=== PATIENT | female | born 1950 | race Caucasian/White ===

== ENCOUNTER 2020-06-25 12:28 | Outpatient (CLI) | payer MEDICARE, SELFPAY ==
--- NOTE | ~2020-06-25 | XR_ITS ---
EXAMINATION: XR_[id number]_CR DATE: 06/25/2020 12:59 INDICATION: Cervical spondylosis without myelopathy or radiculopathy. TECHNIQUE: 3 views of cervical spine on 4 radiographs were obtained. COMPARISON: Cervical spine radiographs 03/15/2019 FINDINGS: There is hypolordosis of cervical spine. Vertebral body heights are normal. There is mildly decreased disc height at C4-C5 and C6-C7. There is multilevel mild facet joint osteoarthritis. There is multilevel uncovertebral joint osteoarthritis, moderate on the left at C4-C5 and on the right at C5-C6. There is mild central canal stenosis at C5-C6. No prevertebral soft tissue swelling. IMPRESSION: 1. Stable mild cervical spondylosis. Reviewed, dictated and finalized at location A.
--- NOTE | ~2020-06-25 | XR_ITS ---
EXAMINATION: XR lumbar spine min 4V DATE: 06/25/2020 12:59 INDICATION: Low back pain. TECHNIQUE: 5 views of lumbar spine were obtained. COMPARISON: CT abdomen and pelvis 06/12/2018 FINDINGS: There is 9 degrees dextrocurvature of lumbar spine. There are Schmorl's nodes at L2-L3 and L3-L4. There are benign bone islands in L1 and L3 vertebral bodies. Intervertebral disc heights are n ormal. There is severe facet joint osteoarthritis in lower lumbar spine. Cholelithiasis is noted. IMPRESSION: 1. Mild lumbar spondylosis. 2. Cholelithiasis. Reviewed, dictated and finalized at location A.
== END 2020-06-25 12:29 | disposition home or self-care (01) ==
PROVIDERS: PCP Family Medicine; Visit Provider Physician Assistant
DX: M47.812 Spondylosis without myelopathy or radiculopathy, cervical region (principal); G89.29 Other chronic pain; M47.896 Other spondylosis, lumbar region; K80.20 Calculus of gallbladder without cholecystitis without obstruction
CPT/HCPCS: 72040; 72110

== ENCOUNTER → 2020-09-14 17:32 | Outpatient (CLI) | payer MEDICARE, SELFPAY ==
--- NOTE | ~2020-09-14 | MM_ITS ---
EXAMINATION: MM screening luis daniel BI w abdullahi HISTORY: Screening TECHNIQUE: Craniocaudal and mediolateral oblique 3-D tomosynthesis images were obtained and synthetic 2-D images were generated. CAD analysis was submitted and interpreted. COMPARISON: Comparison to multiple prior studies sequentially, with oldest reviewed study dated 07/2012. BREAST PARENCHYMAL COMPOSITION: The breasts are heterogeneously dense, which may obscure small masses . FINDINGS: There is no evidence of suspicious mass, calcification, or architectural distortion to sugg est malignancy in either breast. There has been no suspicious interval change. IMPRESSION: 1. No mammographic evidence of malignancy. 2. Recommend routine screening mammography in one year. BI-RADS Category 1: Negative Reviewed, dictated and finalized at location A. [employer]
== END ==
PROVIDERS: PCP Family Medicine; Visit Provider Obstetrics & Gynecology
DX: Z12.31 Encounter for screening mammogram for malignant neoplasm of breast (principal)
CPT/HCPCS: 77063; 77067

== ENCOUNTER 2020-09-22 10:07 | Emergency (ER) | payer MEDICARE, SELFPAY ==
[2020-09-22 10:18] VITALS: BP 127/68; PULSE 80; RESP 16; TEMP 36.4; O2SAT 99
--- NOTE | 2020-09-22 11:07 | PC.NURSE ---
aware of xpc status and is next to be seen.
--- NOTE | 2020-09-22 11:28 | ED.UPPEXIN ---
HPI - Extremity Injury (Upper) General Chief Complaint: Extremity Injury, Upper Stated Complaint: RIGHT HAND PAIN History of Present Illness HPI narrative: THIS IS A 70 YEAR OLD FEMALE THAT COMES IN COMPLAINING OF RIGHT ARM NUMBNESS AND TINGLING.PATIENT INFORMED ME SHE HAD A INJECTION TO HER NECK 2 DAYS AGO AND EVERY SINCE THEN SHE HAS HAD PROBLEM WITH HER RIGHT ARM. PATIENT STATES SHE CAN NOT CALL THE OFFICE BACK BECAUSE THEY ARE CLOSED TODAY. PATIENT STATES THAT SHE IS SHAKEY AND WHEN SHE TRIED TO FEED HERSELF SHE HAS NO CONTROL.PATIENT IS VERY TEARFUL AND SHE STATES SHE HAS A MRI TO BE COMPLETED ON FRIDAY. PATIENT STATES THAT HER ARM IS TINGLING AND HEAVY SHE IS NOT FEELING RIGHT. PATIENT IS ANXIOUS AND TEARFUL PATIENT MADE THE STATEMENT SHE COULD BE LONG SHE HAS WAITED. I DID EXPLAIN TO PATIENT THAT SHE HAS BEEN SEEN IN THE ORDER THAT SHE CAME AND I APOLOGIZED FOR HER WAIT. Related Data Home Medications Medication Instructions Recorded Confirmed alendronate 70 mg tablet 70 mg PO WEEKLY 06/14/20 06/14/20 simvastatin 10 mg tablet 10 mg PO DAILY 06/14/20 06/14/20 alprazolam 09/22/20 Allergies Allergy/AdvReac Type Severity Reaction Status Date / Time No Known Allergies Allergy Verified 09/06/20 13:42 Review of Systems Review of Systems: Narrative: CONSTITUTIONAL: Denies fever, chills, or sweats. EYES: Denies visual changes, redness, or discharge. ENT: Denies rhinorrhea, congestion, sore throat, or otalgia. CARDIOVASCULAR:Denies chest pain, palpitations, or edema. RESPIRATORY: Denies cough or dyspnea. GASTROINTESTINAL: Denies abdominal pain, nausea, vomiting, or diarrhea. GENITOURINARY: Denies dysuria or hematuria. SKIN:[Denies rash or itching. MUSCULOSKELETAL:Denies back pain, positive joint pain, or myalgia. Right arm numbness and tingling, HEAVINESS NEUROLOGIC: Denies headache, numbness, or weakness. PSYCHIATRIC:Denies anxiety or depression [facility] Past Medical History Medical History (Updated 09/22/20 @ 11:42 by Ana Dominguez NP) Anxiety BMI 21.0-21.9, adult Breast cancer screening (~03/2019) Chronic neck pain Chronic neck pain with osteoarthritis determined by x-ray Constipation COPD with asthma Environmental allergies Essential (primary) hypertension History of colon polyps Hyperlipidemia Low back pain Multiple thyroid nodules Osteoporosis URI (upper respiratory infection) (~01/2019) Vitamin D deficiency Surgical History Surgical History History of total abdominal hysterectomy and bilateral salpingo-oophorectomy History of tubal ligation (~1978) Family History Family History Sibling Family history of cardiovascular disease Acute myocardial infarction Family history of chronic obstructive pulmonary disease Family history of malignant neoplasm of breast in first degree relative Father Family history of lung cancer Mother Family history of malignant neoplasm of breast in first degree relative Social History Social History (Updated 09/06/20 @ 13:43 by Asuncion Boss) Smoking packs per day: 1 Smoking cigarettes per day: 20.0 Years smoked: 20 Smoking pack-years: 20.00 Smoking status: Former smoker Tobacco type: cigarettes Second hand tobacco smoke exposure: No Smoking end date: 11/10/16 Alcohol intake: current Substance use: never Substance use type: does not use Gender identity (if verbalized by the patient): Female Comments At time as signature, I have reviewed and agree with nursing past medical, social, surgical and family history. Please see nursing chart for further information. There is no relevant family history pertinent to the presenting complaint. Exam Narrative: Exam Narrative: GENERAL:Well-appearing, well-nourished, and in no acute distress. HEAD:Normocephalic, atraumatic. EYES: PERRLA and EOMI. ENT: Nares clear, no
== END 2020-09-22 11:33 | disposition short-term general hospital (02) ==
PROVIDERS: Emergency Provider Nurse Practitioner Family; PCP Family Medicine
DX: R20.0 Anesthesia of skin (principal); R20.2 Paresthesia of skin; M47.812 Spondylosis without myelopathy or radiculopathy, cervical region; J44.9 Chronic obstructive pulmonary disease, unspecified; I10 Essential (primary) hypertension; E78.5 Hyperlipidemia, unspecified; M81.0 Age-related osteoporosis without current pathological fracture; F41.9 Anxiety disorder, unspecified
CPT/HCPCS: 99212; G0463

== ENCOUNTER 2020-09-22 11:56 | Observation (INO) | payer MEDICARE, SELFPAY ==
[2020-09-22] VITALS (17 sets, daily range): BP systolic 124–175; BP diastolic 55–84; PULSE 51–73; RESP 12–18; TEMP 36.6–37; O2SAT 97–100; BMI 21.3
--- NOTE | ~2020-09-22 | CT_ITS ---
EXAMINATION: CTA brain carotid EXAM DATE: 09/22/2020 14:10 INDICATION: Abnormal coordination of right hand. TECHNIQUE: Noncontrast head CT. Spiral CTA of the carotid arteries was performed with intravenous i njection 100 cc of Omnipaque 350. Axial, coronal, sagittal reformatted images reviewed. Additional r eformatted images created on dedicated 3-D workstation. NASCET comparable standard used to assess th e degree of arterial stenosis. Spiral CT angiogram cerebral arteries performed with the same intrave nous injection of contrast. Source images of the brain CTA transferred to dedicated workstation for 3 -D rotational image creation. Coronal, sagittal maximum intensity pixel images also reviewed. The d ose-length product (DLP) for this examination was 1623.30 mGy-cm. The exposure was tailored accordi ng to patient size, and iterative reconstruction (ASIR) was used as additional dose reduction techniq ue. Comparison is made to prior examination from 01/19/2013. FINDINGS: There is moderate amount of right carotid bulb plaque, 30% stenosis. More extensive left ca rotid bulb calcified and noncalcified plaque with 60% stenosis. The vertebral arteries are codominant . Bilateral carotid siphon arterial sclerosis only mild stenosis. There is no carotid or vertebral ba silar arterial dissection or fibromuscular dysplasia. There are no cerebral artery aneurysms. There i s symmetric cerebral artery arborization. The sagittal, transverse and sigmoid sinuses enhance normal ly, no venous sinus thrombosis. Internal cerebral veins also enhance normally. 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 Mild microangiopathy and cerebral atrophy. There is no acute intraparenchymal hemorrhage. No evidence of intraparenchymal brain mass lesion. No evidenc e of acute infarction. There is no mass effect or midline shift. There is no obstructive hydrocepha anushka suspected. There are no extra-axial collections. There are no calvarial acute fractures. Bilate ral cataract surgery. There is small right thyroid lobe nodule. There are no areas of abnormal enhanc ement on the post contrast images. IMPRESSION: 1. Left carotid bulb 60% stenosis. 2. Right carotid bulb 30% stenosis. 3. 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 4. Mild atrophy and microangiopathy. Reviewed, dictated and finalized at location B. [employer]
--- NOTE | 2020-09-22 12:36 | ED.NEUROSD ---
HPI - Neuro Symptoms/Deficit General Chief Complaint: Neuro Symptoms/Deficit Stated Complaint: R hand numbness/tingling - from Urgent Care Time Seen by Provider: 09/22/20 12:05 History of Present Illness HPI Narrative: Right hand/forearm numbness and incoordination for the past 3 days. The numbness is diffuse from the elbow down, intermittent. She noted that she has trouble doing things with the right hand and at times it shakes. She had steroid injections in the neck 1 week ago. She is nt able to provide any additional details about the procedure. No weakness, fever, trauma. Related Data Home Medications Medication Instructions Recorded Confirmed alendronate 70 mg tablet 70 mg PO WEEKLY 06/14/20 06/14/20 simvastatin 10 mg tablet 10 mg PO DAILY 06/14/20 06/14/20 alprazolam 09/22/20 Allergies Allergy/AdvReac Type Severity Reaction Status Date / Time No Known Allergies Allergy Verified 09/22/20 17:15 Review of Systems Review of Systems: All systems reviewed & are unremarkable except as noted in HPI and below Constitutional: Constitutional: Denies fever(s) and Denies weakness Cardiovascular: Cardiovascular: Denies chest pain Respiratory: Respiratory: Denies dyspnea Gastrointestinal: Gastrointestinal: Denies abdominal pain, Denies nausea and Denies vomiting Genitourinary: Genitourinary: Denies dysuria Neurologic: Denies dizziness, Denies headache(s) and Denies weakness PMFSH Past Medical History Medical History Anxiety BMI 21.0-21.9, adult Breast cancer screening (~03/2019) Chronic neck pain Chronic neck pain with osteoarthritis determined by x-ray Constipation COPD with asthma Environmental allergies Essential (primary) hypertension History of colon polyps Hyperlipidemia Low back pain Multiple thyroid nodules Osteoporosis URI (upper respiratory infection) (~01/2019) Vitamin D deficiency Surgical History Surgical History History of total abdominal hysterectomy and bilateral salpingo-oophorectomy History of tubal ligation (~1978) Family History Family History Sibling Family history of cardiovascular disease Acute myocardial infarction Family history of chronic obstructive pulmonary disease Family history of malignant neoplasm of breast in first degree relative Father Family history of lung cancer Mother Family history of malignant neoplasm of breast in first degree relative Social History Social History Smoking packs per day: 1 Smoking cigarettes per day: 20.0 Years smoked: 20 Smoking pack-years: 20.00 Smoking status: Former smoker Tobacco type: cigarettes Second hand tobacco smoke exposure: No Smoking end date: 11/10/16 Alcohol intake: current Substance use: never Substance use type: does not use Gender identity (if verbalized by the patient): Female Exam Const: General: healthy appearing, no acute distress and alert Orientation/consciousness: patient oriented x3 HENMT: Head: normal to inspection Neck: Neck: normal visual inspection Chest: Chest palpation & inspection: no tenderness Resp: Effort & Inspection: normal respiratory effort Auscultation: clear to auscultation bilaterally, no rales, no rhonchi and no wheezes Cardio: Jugular venous distension: no JVD Rate: regular rate Rhythm: regular rhythm Heart sounds: no murmurs GI: Inspection: non-distended GI Palp: Yes Soft to palpation and No Tenderness to palpation present (GI) Skin: General skin exam: normal color Neuro: General: patient oriented x3 Cranial nerves: Yes CN's II-XII intact bilaterally Speech: normal speech Motor exam (neuro): 5/5 motor strength present throughout Other: Abnormal [id number] and rapid alternating movements with RUE Extrem: General:
[2020-09-22 13:13] LABS: Basophils Percent Auto 0.5 % (0.2-1.2); Eosinophils Absolute Auto 0.1 K/mm3 (0-0.3); Eosinophils Percent Auto 0.7 % (0-4.4); Hematocrit 38.2 % (37.0-47.0); Hemoglobin 12.7 g/dL (12.0-15.0); Immature Granulocyte Absolute 0.02 K/mm3 (0.00-0.031); Immature Granulocyte Percent A 0.2 % (0-0.5); Lymphocytes Absolute Auto 2.75 K/mm3 (0.9-3.2); Lymphocytes Percent Auto 31.4 % (18.3-44.2); Mean Corpuscular HGB Conc 33.2 g/dl (32-36); Mean Corpuscular Hemoglobin 32.7 pg (26-34); Mean Corpuscular Volume 98.5 fl (80-100); Mean Platelet Volume 10.4 fl (7.4-10.4); Monocytes Absolute Auto 0.5 K/mm3 (0.1-0.6); Monocytes Percent Auto 5.3 % (2.6-8.5); Neutrophils Absolute Auto 5.4 K/mm3 (1.3-6.7); Neutrophils Percent Auto 61.9 % (45.5-73.1); Platelet Count Result 240 k/mm3 (150-375); Red Blood Count 3.88 M/mm3 (4.2-5.4); Red Cell Distribution Width 12.4 % (11.5-14.5); White Blood Count 8.8 K/mm3 (4.5-10.0)
[2020-09-22 13:24] LABS: Prothrombin Time 13.9 Seconds (11.1-14.7)
[2020-09-22 13:25] LABS: Anion Gap 6 mmol/L (8-16); Blood Urea Nitrogen 20 mg/dL (7-17); Calcium 9.2 mg/dL (8.4-10.2); Carbon Dioxide 32 mmol/L (22-30); Chloride 102 mmol/L (98-107); Estimated CRCL calculation 59 ml/min; Estimated Glomerular Filt Rate > 60; Glucose 96 mg/dL (65-105); Partial Thromboplastin Time 36.2 SECONDS (22.3-36.8); Potassium 2.9 mmol/L (3.4-5.0); Sodium 140 mmol/L (137-145)
--- NOTE | 2020-09-22 17:15 | ADMGEN ---
This patient, Sofia Fair, was admitted to Medical Room 347-01. Patient/family oriented to hospital policies and general routines including ID bracelet, bed and alarms, visiting hours, pain management, procedures, bathroom and other care routines, personal items, smoking policy, room service/diet, and visiting hours. Information on how to activate the Rapid Response Team has been discussed. Patient/Family are encouraged to report perceived risks to care and to ask questions if they do not understand what they are told or what they should do.
--- NOTE | 2020-09-22 18:00 | PM.IMHP ---
H&P: HPI History of Present Illness Date/Time: 09/22/20 18:00 Chief complaint: Right arm paresthesia. Narrative: Sofia Fair is a pleasant 70-year-old female with hypertension and carotid artery disease who presented to the emergency department earlier today with complaints of right arm paresthesias. Yesterday morning during an exercise class she developed numbness of the right palm and shortly thereafter she began to experience an almost heaviness sensation in her right arm, from the elbow down to the hand. She also mentions some mild incoordination, for example she tried to knit this morning and had a difficult time doing such. 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 She has no known history of prior stroke but she does mention a couple of weeks ago that her right leg began to feel wobbly and it sounds as though she has been having some issues with over stepping or under stepping which caused her to fall forward onto her knees at 1 point in time last week. She sees Dr. Tim Forbes (vascular surgeon) regarding known carotid artery stenosis, but it does not sound as though she has seen him for a couple of years. He has put her on low-dose simvastatin which she continues to take. She does not take an aspirin daily. She denies vertigo, auditory and visual changes, and focal weakness. No facial droop, dysarthria, or dysphagia. No known history of cardiac arrhythmia; she denies palpitations and racing heart. Of note, the patient recently had a cervical spine MRI in July 2020 due to chronic neck pain, and she was found to have multilevel spondylosis with some disc and osteophyte protrusion for which she received an injection last Friday with marked benefit. Review of Systems Review of Systems: Narrative: Twelve systems were reviewed with pertinent positives and negatives as per HPI. No fever, chills, or sweats. No recent cold or flu symptoms. She denies exposure to those positive for COVID-19. Except as documented, all other systems were reviewed and are negative. [facility] Past Medical History Medical History (Updated 09/22/20 @ 22:08 by Carine Billy PA-C) Anxiety Carotid artery stenosis CTA of the head and neck on 09/22/2020 showed left carotid bulb 60% stenosis and right carotid bulb 30% stenosis. 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 Chronic neck pain COPD with asthma Environmental allergies Essential (primary) hypertension History of colon polyps Hyperlipidemia Multiple thyroid nodules Osteoporosis Vitamin D deficiency Surgical History Surgical History (Updated 09/22/20 @ 22:04 by Carine Billy PA-C) History of dilation and curettage History of left breast biopsy History of total abdominal hysterectomy and bilateral salpingo-oophorectomy History of tubal ligation (~1978) Family History Family History Sibling Family history of cardiovascular disease Acute myocardial infarction Family history of chronic obstructive pulmonary disease Family history of malignant neoplasm of breast in first degree relative Father Family history of lung cancer Mother Family history of malignant neoplasm of breast in first degree relative Social History Social History (Updated 09/22/20 @ 22:05 by Carine Billy PA-C) Smoking packs per day: 1 Smoking cigarettes per day: 20.0 Years smoked: 20 Smoking pack-years: 20.00 Smoking status: Former smoker Tobacco type: cigarettes Second hand tobacco smoke exposure: No Smoking end date: 11/10/16 Alcohol intake: current Substance use: never Substance use type: does not use Additional living arrangements comments: Lives in [place]. Additional occu
[2020-09-22] MEDS: ASPIRIN 81 MG CHEWABLE TABLET 324 MG PO (21:34)
[2020-09-23] VITALS: PULSE 74
[2020-09-23 04:11] VITALS: PULSE 60
[2020-09-23 06:00] VITALS: BP 156/74; PULSE 66; RESP 15; TEMP 36.3; O2SAT 100
[2020-09-23 06:03] LABS: Alanine Aminotransferase 16 U/L (4-35); Albumin Level 3.6 g/dL (3.5-5.1); Alkaline Phosphatase 38 U/L (38-126); Anion Gap 3 mmol/L (8-16); Aspartate Amino Transferase 21 U/L (14-36); Bilirubin,Total 0.4 mg/dL (0.2-1.3); Blood Urea Nitrogen 18 mg/dL (7-17); Calcium 8.8 mg/dL (8.4-10.2); Carbon Dioxide 32 mmol/L (22-30); Chloride 104 mmol/L (98-107); Cholesterol 149 mg/dL (0-200); Estimated CRCL calculation 53 ml/min; Estimated Glomerular Filt Rate > 60; Glucose 90 mg/dL (65-105); HDL Direct 56 mg/dL; Magnesium 2.3 mg/dL (1.6-2.3); Potassium 4.1 mmol/L (3.4-5.0); Sodium 139 mmol/L (137-145); Triglycerides 61 mg/dL (<150)
[2020-09-23 06:15] LABS: LDL Cholesterol Direct 76 mg/dL
[2020-09-23 08:00] VITALS: PULSE 61; PULSE 66; RESP 15; O2SAT 100
[2020-09-23] MEDS: SIMVASTATIN 10 MG TABLET PO (08:55)
[2020-09-23] MEDS: dilTIAZem HCL 60 MG TABLET 180 MG PO (08:55)
[2020-09-23] MEDS: lisinopriL 20 MG TABLET PO (08:57)
[2020-09-23] MEDS: ASPIRIN 81 MG ENTERIC TABLET PO (08:57)
[2020-09-23] MEDS: hydroCHLOROthiazide 12.5 MG CAPSULE PO (08:57)
--- NOTE | 2020-09-23 09:41 | PHAR ---
Fosamax Oral Tablet: 70 MG
[2020-09-23 12:00] VITALS: PULSE 71
--- NOTE | 2020-09-23 13:39 | WPDNEURCNPN ---
Assessment and Plan Assessment and plan (1) Stroke-like symptoms: Code(s): R29.90 - Unspecified symptoms and signs involving the nervous system Status: Acute (2) Stenosis of left internal carotid artery: Code(s): I65.22 - Occlusion and stenosis of left carotid artery Status: Acute Additional Plan , obtain the MRI of the brain of further documentation in the meantime echocardiogram has been done which reveals borderline left ventricular enlargement mild mitral annular calcification and also aortic valve sclerosis Consult date: 09/24/20 Time Seen: 13:39 HPI: Sofia Fair is a 70 year old female admitted to the hospital with paresthesia of right upper extremity in addition to the history of 1. Hypertension 2. Carotid artery disease CTA of the head and neck done on arrival revealed old left frontal lobe cortical infarct in addition to 60% stenosis of the left carotid bulb as well as 30% stenosis of the right carotid bulb he gave the history of right lower extremity feeling wobbly about couple of weeks ago she does follow with a vascular surgeon for the known carotid artery stenosis she has been taking simvastatin 2 no aspirin Review of Systems Review of Systems: All systems reviewed & are unremarkable except as noted in HPI and below PMFSH Past Medical History Medical History Anxiety Carotid artery stenosis CTA of the head and neck on 09/22/2020 showed left carotid bulb 60% stenosis and right carotid bulb 30% stenosis. 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 Chronic neck pain COPD with asthma Environmental allergies Essential (primary) hypertension History of colon polyps Hyperlipidemia Multiple thyroid nodules Osteoporosis Vitamin D deficiency Surgical History Surgical History History of dilation and curettage History of left breast biopsy History of total abdominal hysterectomy and bilateral salpingo-oophorectomy History of tubal ligation (~1978) Family History Family History Sibling Family history of cardiovascular disease Acute myocardial infarction Family history of chronic obstructive pulmonary disease Family history of malignant neoplasm of breast in first degree relative Father Family history of lung cancer Mother Family history of malignant neoplasm of breast in first degree relative Social History Social History Smoking packs per day: 1 Smoking cigarettes per day: 20.0 Years smoked: 20 Smoking pack-years: 20.00 Smoking status: Former smoker Tobacco type: cigarettes Second hand tobacco smoke exposure: No Smoking end date: 11/10/16 Alcohol intake: current Substance use: never Substance use type: does not use Additional living arrangements comments: Lives in [place]. Additional occupation/education comments: Retired. Gender identity (if verbalized by the patient): Female Spiritual care concerns: No Meds Home Medications and Allergies Home Medications Medication Instructions Recorded Confirmed Type diltiazem HCl 90 mg tablet 180 mg PO BID #360 tablet 05/30/20 09/22/20 Rx lisinopril 20 1 tablet PO DAILY #90 tablet 05/30/20 09/22/20 Rx mg-hydrochlorothiazide 12.5 mg tablet alendronate 70 mg tablet 70 mg PO WEEKLY 06/14/20 09/22/20 History simvastatin 10 mg tablet 10 mg PO DAILY 06/14/20 09/22/20 History aspirin 81 mg PO QAM #30 tablet 09/23/20 Rx Allergies Allergy/AdvReac Type Severity Reaction Status Date / Time No Known Allergies Allergy Verified 09/22/20 17:15 Vital Signs Vital Signs - 24 hr 09/22/20 13:58 09/22/20 14:01 09/22/20 14:16 Temperature Pulse Rate 56 L 56 L 59 L Respiratory Rate 15 14 12 Blood Pressure 141/68 H 136/74 130/55 L
--- NOTE | 2020-09-23 14:43 | PM.DS ---
DS: Admitting Diagnosis Admitting Diagnosis Admitting Diagnosis: Right arm paresthesia. DS: Discharge Diagnosis Discharge Diagnosis (1) Stroke-like symptoms: Code(s): R29.90 - Unspecified symptoms and signs involving the nervous system Status: Acute DS: Summary Hospital Course Reason for hospitalization: Chief complaint: Right arm paresthesia. Narrative: Sofia Fair is a pleasant 70-year-old female with hypertension and carotid artery disease who presented to the emergency department earlier today with complaints of right arm paresthesias. Yesterday morning during an exercise class she developed numbness of the right palm and shortly thereafter she began to experience an almost heaviness sensation in her right arm, from the elbow down to the hand. She also mentions some mild incoordination, for example she tried to knit this morning and had a difficult time doing such. 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 She has no known history of prior stroke but she does mention a couple of weeks ago that her right leg began to feel wobbly and it sounds as though she has been having some issues with over stepping or under stepping which caused her to fall forward onto her knees at 1 point in time last week. She sees Dr. Tim Forbes (vascular surgeon) regarding known carotid artery stenosis, but it does not sound as though she has seen him for a couple of years. He has put her on low-dose simvastatin which she continues to take. She does not take an aspirin daily. She denies vertigo, auditory and visual changes, and focal weakness. No facial droop, dysarthria, or dysphagia. No known history of cardiac arrhythmia; she denies palpitations and racing heart. Of note, the patient recently had a cervical spine MRI in July 2020 due to chronic neck pain, and she was found to have multilevel spondylosis with some disc and osteophyte protrusion for which she received an injection last Friday with marked benefit. Hospital Course: Patient presented with a complaint of right upper arm numbness and heaviness however symptoms have resolved, patient had a CTA of the head did not show any significant stenosis, patient had a cardiac echo showed mild reduction ejection fraction 45-50% and grade 1 diastolic dysfunction, patient is seen by neurologist however about MRIs not work, patient has agreed to have done MRIs outpatient and to follow-up with her primary care provider as soon as possible. Status at Discharge Functional status at discharge: independent ambulation Overall status at discharge: patient is back to baseline Time Spent with Patient Time attestation: Total time spent providing and/or coordinating discharge services: Patient was seen and examined at the time of the discharge Condition at discharge is stable Code status: Full code. Time spent preparing discharge summary, discharge medications, discussing discharge planning with case management manager and patient is 35 minutes. Time spent: Less than 30 minutes Exam Narrative: Exam Narrative: Patient is comfortable, NAD HEENT: eyes are clear and none icteric LUNGS:CTA HEART: RR S1S2 ABD: BS+, Soft and nontender Lower extremities: no edema MS: Bilateral upper extremity symmetrical power and strength 5/5 SKIN: nonjaundiced Neuro: grossly intact. DS: Data Data Completed and Pending Labs on day of discharge: Labs from last 24 hours 09/23/20 05:21 Sodium 139 Potassium 4.1 Chloride 104 Carbon Dioxide 32 H Anion Gap 3 L BUN 18 H Creatinine 0.80 Estim Creat Clear Calc 53 Estimated GFR > 60 Glucose 90 Calcium 8.8 Magnesium 2.3 Total Bilirubin 0.4 AST 21 ALT 16 Alkaline Phosphatase 38 Total Protein 6.0 L Albumin 3.6 Triglycerides 61 Cholesterol 149 LDL Cholesterol Direct 76 HDL D
--- NOTE | 2020-09-23 15:03 | PCPTNOTE ---
Consulted with OT therapist, pt is functioning at [facility] for mobility and does not require the skills of a PT at time.
--- NOTE | 2020-09-23 18:20 | ECHO_ITS ---
Patient Info Name: Sofia Fair Age: 70 years : 1950 Gender: Female Ht: 66 in Wt: 133 lbs BSA: 1.68 m2 HR: 60 bpm BP: 127 / 91 mmHg Heart Rhythm: Bradycardia Technical Quality: Good Exam Date: 09/23/2020 7:05 AM Exam Location: [facility] Patient Status: Inpatient Admit Date: 09/22/2020 Staff Ordering Physician: Carine Billy PA-C Counter Waitress/Waiter: Jayla Dickens RDCS Attending Provider: Tres Elkins MD Referring Physician: Mariajose KUO; Exam Type: CA echo doppler color flow Summary 1. Borderline LV enlargement; borderline LVH; mild LV systolic dysfunction, ejection fraction 45-50%; grade 1 diastolic dysfunction. Mild biatrial enlargement. Mild mitral annular calcification, trivial MR. Aortic valve sclerosis without significant stenosis by Doppler. Trace TR. RVSP 33 mmHg. Sinus bradycardia. Left Ventricle Left ventricular chamber dimension is normal. Left ventricular systolic function is mildly reduced, estimated at 45-50%. There is no increased left ventricular wall thickness. The left ventricular diastolic function is grade I diastolic dysfunction. Right Ventricle Right ventricular chamber dimension is normal. Right ventricular systolic function is normal. Left Atria Left atrial chamber dimension is mildly enlarged. Right Atria Right atrial chamber dimension is mildly enlarged. Atrial Septum Intact interatrial septum visualized by color flow imaging. Aortic Valve There is mild aortic valve sclerosis. There is no aortic valve stenosis. Pulmonic Valve The pulmonic valve is normal. Mitral Valve There is trace mitral valve regurgitation. The mitral valve annulus is mildly calcified. Tricuspid Valve The tricuspid valve leaflets are normal. There is trace tricuspid valve regurgitation. Pericardium/Pleural There is trivial pericardial effusion. Inferior Vena Cava Dilated inferior vena cava with <50% collapse upon inspiration consistent with elevated right atrial pressure, 10 mmHg. Left Ventricular Outflow Tract Name Value Normal LVOT 2D LVOT Diameter 1.9 cm LVOT Doppler LVOT Peak Velocity 98 cm/s LVOT Peak Gradient 4 mmHg LVOT Mean Gradient 2 mmHg LVOT VTI 20 cm LVOT VTI/AV VTI Ratio 0.9 LVOT Stroke Volume 57 ml LVOT CO 9.1 l/min LVOT CI 5.4 l/min/m2 Pulmonic Valve Name Value Normal PV Doppler PV Peak Velocity 120 cm/s PV Peak Gradient 6 mmHg Mitral Valve Name Value Normal
== END 2020-09-23 15:35 | disposition home or self-care (01) ==
LOC: ANHED 15:52 → ANH3MED 17:33
PROVIDERS: Physician Assistant; Admitting Provider Internal Medicine; Emergency Provider Emergency Medicine; PCP Family Medicine; Visit Provider Family Medicine
DX: R20.2 Paresthesia of skin (principal); R27.0 Ataxia, unspecified; I65.23 Occlusion and stenosis of bilateral carotid arteries; E87.6 Hypokalemia; J44.9 Chronic obstructive pulmonary disease, unspecified; I10 Essential (primary) hypertension; E78.5 Hyperlipidemia, unspecified; M81.0 Age-related osteoporosis without current pathological fracture; E55.9 Vitamin D deficiency, unspecified; F41.9 Anxiety disorder, unspecified; K59.00 Constipation, unspecified; Z87.891 Personal history of nicotine dependence; Z86.73 Personal history of transient ischemic attack (TIA), and cerebral infarction without residual deficits
CPT/HCPCS: 36415; 70496; 70498; 80048; 80053; 80061; 83735; 85025; 85610; 85730; 93306; 96365; 96366; 97165; 99285; A9270; G0378; J3480; Q9967